=== PATIENT | male | born 1975 | race Caucasian/White ===

== ENCOUNTER 2016-07-31 09:37 | Emergency (ER) | payer BC ==
[~2016-07-31] VITALS: Ht 177.8 cm; Wt 81.7 kg
[~2016-07-31 09:37] MED LIST: FLONASE 0.05%50 MCG NASAL; MOBIC15 MG PO; PROAIR HFA8.5 GM
== END 2016-07-31 11:17 | disposition home or self-care (01) ==
LOC: ER 09:37
DX: S51.811A Laceration without foreign body of right forearm, initial encounter (principal); F10.99 Alcohol use, unspecified with unspecified alcohol-induced disorder; W45.8XXA Other foreign body or object entering through skin, initial encounter; Y93.89 Activity, other specified; Y92.89 Other specified places as the place of occurrence of the external cause; Y99.8 Other external cause status

== ENCOUNTER 2021-01-07 16:21 | Emergency (ER) | payer BC ==
[~2021-01-07] VITALS: Ht 177.8 cm; Wt 86.2 kg
[2021-01-07] MEDS ORDERED: DIPHENHIST50 MG PO (17:53)
[2021-01-07] MEDS ORDERED: EPIPEN0.3 MG/0.1 IM (17:53)
[2021-01-07] MEDS ORDERED: PREDNISONE 20 M20 MG PO (17:53)
[2021-01-07] MEDS ORDERED: PEPCID40 MG PO (17:53)
[2021-01-07] MEDS ORDERED: PROAIR HFA8.5 GM INH (17:53)
[2021-01-07 18:05] VITALS: BP 133/85
== END 2021-01-07 18:05 | disposition home or self-care (01) ==
LOC: ER 16:21
DX: T63.441A Toxic effect of venom of bees, accidental (unintentional), initial encounter (principal); R06.02 Shortness of breath; R07.89 Other chest pain; Z98.890 Other specified postprocedural states; Z91.030 Bee allergy status; Y92.89 Other specified places as the place of occurrence of the external cause